=== PATIENT | male | born 1950 | race Caucasian/White ===

== ENCOUNTER → 2018-07-21 | Outpatient (CLI) | payer MEDICARE, OTHER | LOC: COL.RAD 09:30 | DX: M79.645 Pain in left finger(s) (principal) | CPT/HCPCS: J3301; Q9967 ==

== ENCOUNTER → 2019-10-29 | Outpatient (CLI) | payer MEDICARE, OTHER | LOC: COL.LAB 09:33 | DX: M18.10 Unilateral primary osteoarthritis of first carpometacarpal joint, unspecified hand (principal); Z20.828 Contact with and (suspected) exposure to other viral communicable diseases ==

== ENCOUNTER 2020-02-11 09:00 | Outpatient (RCR) | payer MEDICARE, OTHER | END 2020-02-14 | disposition home or self-care (01) | LOC: WSOT | DX: M79.645 Pain in left finger(s) (principal); Z98.890 Other specified postprocedural states ==

== ENCOUNTER 2021-10-24 16:42 | Inpatient (IN) | payer MEDICARE, OTHER ==
[~2021-10-24] VITALS: Ht 188 cm; Wt 112.0 kg
[2021-10-24 17:13] LABS: BASO % 0.6 % (0.0-2.0); EOS # 0.1 K/mm3 (0.0-0.7); EOS % 1.1 % (0.0-4.0); GRAN # 4.7 K/mm3 (1.4-6.5); HEMATOCRIT 45.5 % (42.0-52.0); HEMOGLOBIN 15.8 g/dl (13.5-18.0); LYMPH % 15.7 % (20.0-51.0); MEAN CELL VOLUME 93 fl (80.0-100.0); MEAN CORPUSCULAR HEMOGLOBIN 32 pg (27-31); MEAN CORPUSCULAR HGB CONC 35 g/dl (33.0-37.0); MEAN PLATELET VOLUME 10.1 fl (7.4-10.4); MONO # 0.5 K/mm3 (0.1-0.6); MONO % 7.3 % (1.7-9.3); PLATELET COUNT 129 K/mm3 (130-400); RED BLOOD COUNT 4.92 M/mm3 (4.20-5.60); REDCELL DISTRIBUTION WIDTH-CV 13.3 % (11.5-14.5)
[2021-10-24 17:34] LABS: ALBUMIN 3.7 gm/dL (3.4-4.8); C-REACTIVE PROTEIN 6.25 mg/dL (0.00-0.50); CALCIUM 9.2 mg/dL (8.4-10.2); CREATININE, serum 0.91 mg/dL (0.72-1.25); POTASSIUM 3.6 mmol/L (3.5-4.5); TOTAL PROTEIN 7.3 gm/dL (6.2-8.1)
[2021-10-24 18:52] LABS: COLLECTION METHOD CLEAN CATCH
[2021-10-24 18:58] LABS: MUCOUS Present (NOT PRESENT); PH 5 (5-8); SQUAMOUS EPITHELIAL 0-2 /hpf (0-10); URINE APPEARANCE Clear (CLEAR/HAZY); URINE BACTERIA None Seen /hpf (NONE SEEN); URINE BILIRUBIN Negative (NEGATIVE); URINE BLOOD Negative (NEGATIVE); URINE COLOR Yellow (YELLOW); URINE GLUCOSE Negative (NEGATIVE); URINE KETONE Trace (NEGATIVE); URINE LEUKOCYTE ESTERASE Negative (NEGATIVE); URINE NITRATE Negative (NEGATIVE); URINE PROTEIN(semi-quant) Negative (NEGATIVE)
[2021-10-24] MEDS ORDERED: LAMISIL250 M1 PO (20:01)
[2021-10-24] MEDS ORDERED: LOPRESSOR 550 MG/TAB PO (20:01)
[2021-10-24] MEDS ORDERED: BENADRYL25 M2 PO (20:02)
[2021-10-24] MEDS ORDERED: PRIL40 PO (20:02)
[2021-10-24] MEDS ORDERED: TYLENOL 500MG500 MG PO (20:02)
[2021-10-24] MEDS ORDERED: ASPIRIN 32325 MG/TAB PO (20:03)
[2021-10-24] MEDS ORDERED: TYLENOL W/COD1 UDTAB PO (20:03)
[2021-10-24] MEDS ORDERED: ALEVE 220MG220 MG PO (20:03)
[2021-10-24] MEDS ORDERED: LIORESAL 1010 MG/TAB PO (20:03)
[2021-10-24] MEDS ORDERED: LIPITOR 80MG80 MG PO (21:34)
[2021-10-24 21:51] VITALS: BP 155/537; BP 155/86; PULSE 91; TEMP 99.6
[2021-10-25] VITALS (8 sets, daily range): BP systolic 94–146; BP diastolic 51–71; PULSE 67–92; TEMP 98.1–99.9
[2021-10-25 05:55] LABS: BASO % 0.6 % (0.0-2.0); EOS # 0.1 K/mm3 (0.0-0.7); EOS % 1.5 % (0.0-4.0); GRAN # 3.8 K/mm3 (1.4-6.5); HEMATOCRIT 41.1 % (42.0-52.0); LYMPH % 17.8 % (20.0-51.0); MEAN CELL VOLUME 96 fl (80.0-100.0); MEAN CORPUSCULAR HEMOGLOBIN 32 pg (27-31); MEAN CORPUSCULAR HGB CONC 33 g/dl (33.0-37.0); MEAN PLATELET VOLUME 10.4 fl (7.4-10.4); MONO # 0.5 K/mm3 (0.1-0.6); MONO % 9.7 % (1.7-9.3); PLATELET COUNT 110 K/mm3 (130-400); RED BLOOD COUNT 4.28 M/mm3 (4.20-5.60); REDCELL DISTRIBUTION WIDTH-CV 13.6 % (11.5-14.5)
[2021-10-25 06:24] LABS: HEMOGLOBIN 13.6 g/dl (13.5-18.0)
[2021-10-25 23:53] LABS: CALCIUM 7.9 mg/dL (8.4-10.2); CREATININE, serum 0.82 mg/dL (0.72-1.25); POTASSIUM 3.6 mmol/L (3.5-4.5); TOTAL PROTEIN 5.8 gm/dL (6.2-8.1)
[2021-10-26 03:36] VITALS: BP 117/57; PULSE 72; TEMP 98.3
[2021-10-26 08:10] VITALS: BP 139/83; PULSE 82; TEMP 99
[2021-10-26 11:56] VITALS: BP 133/59; PULSE 80; TEMP 98.1
[2021-10-26 16:04] VITALS: BP 129/51; PULSE 75; TEMP 98.6
[2021-10-26 20:25] VITALS: BP 160/83; PULSE 78; TEMP 98.2
[2021-10-27] VITALS (7 sets, daily range): BP systolic 109–159; BP diastolic 61–76; PULSE 59–72; TEMP 97.7–99
[2021-10-28 03:49] VITALS: BP 110/65; PULSE 58; TEMP 98
[2021-10-28 06:43] LABS: BASO % 0.5 % (0.0-2.0); EOS # 0.2 K/mm3 (0.0-0.7); EOS % 4.1 % (0.0-4.0); GRAN # 2.1 K/mm3 (1.4-6.5); GRAN % 46.5 % (42.2-75.2); HEMATOCRIT 39.7 % (42.0-52.0); HEMOGLOBIN 13.4 g/dl (13.5-18.0); LYMPH # 1.8 K/mm3 (1.2-3.4); MEAN CELL VOLUME 93 fl (80.0-100.0); MEAN CORPUSCULAR HEMOGLOBIN 32 pg (27-31); MEAN CORPUSCULAR HGB CONC 34 g/dl (33.0-37.0); MEAN PLATELET VOLUME 10.3 fl (7.4-10.4); MONO # 0.3 K/mm3 (0.1-0.6); MONO % 7.7 % (1.7-9.3); PLATELET COUNT 140 K/mm3 (130-400); RED BLOOD COUNT 4.26 M/mm3 (4.20-5.60); REDCELL DISTRIBUTION WIDTH-CV 13.1 % (11.5-14.5)
[2021-10-28 07:11] LABS: CALCIUM 9.2 mg/dL (8.4-10.2); CREATININE, serum 0.79 mg/dL (0.72-1.25); POTASSIUM 3.8 mmol/L (3.5-4.5)
[2021-10-28 08:17] VITALS: BP 148/86; PULSE 62; TEMP 98.9
[2021-10-28 12:32] VITALS: BP 170/80; PULSE 66; TEMP 98.7
[2021-10-28] MEDS ORDERED: LEVAQUIN 750MG750 M1 PO (14:47)
== END 2021-10-28 16:12 | disposition home or self-care (01) | DRG 872 ==
LOC: COL.ER 16:42 → SURG 18:19
PROVIDERS: Emergency Medicine; Nurse Practitioner Family; ADMIT Student in an Organized Health Care Education/Training Program
DX: A41.9 Sepsis, unspecified organism (principal); L02.611 Cutaneous abscess of right foot; E87.2 Acidosis; L03.031 Cellulitis of right toe; K21.9 Gastro-esophageal reflux disease without esophagitis; I10 Essential (primary) hypertension; I25.10 Atherosclerotic heart disease of native coronary artery without angina pectoris; J45.909 Unspecified asthma, uncomplicated; D69.6 Thrombocytopenia, unspecified; L97.529 Non-pressure chronic ulcer of other part of left foot with unspecified severity; E78.5 Hyperlipidemia, unspecified; I44.0 Atrioventricular block, first degree; I45.10 Unspecified right bundle-branch block; G43.909 Migraine, unspecified, not intractable, without status migrainosus; B34.8 Other viral infections of unspecified site; J06.9 Acute upper respiratory infection, unspecified; Z20.822 Contact with and (suspected) exposure to COVID-19; I25.2 Old myocardial infarction; Z87.891 Personal history of nicotine dependence; Z79.82 Long term (current) use of aspirin; Z95.5 Presence of coronary angioplasty implant and graft; Z88.5 Allergy status to narcotic agent; Z88.0 Allergy status to penicillin; Z91.041 Radiographic dye allergy status
CPT/HCPCS: 99223-AI; 99232-AI; 99233-AI; 99239; A9575; J0692; J1650; J1885; J2405; J3370; J7030; J7040; J7050